=== PATIENT | female | born 2000 | race Two or more races ===

== ENCOUNTER 2021-02-22 14:00 | Inpatient (IN) | payer OTHER ==
[~2021-02-22] VITALS: Ht 152.4 cm; Wt 78.0 kg
[2021-03-01] MEDS ORDERED: PRENATAL CAPLE1 EAC1 PO (09:11)
[2021-03-01] MEDS ORDERED: IRON325 MG PO (09:12)
== END 2021-03-03 15:53 | disposition home or self-care (01) | DRG 807 ==
LOC: LDR 03-01 08:31 → SURG-SUITE 03-01 08:31 → SURH 03-01 14:00 → SURG-SUITE 03-01 19:09
PROVIDERS: ADMIT Student in an Organized Health Care Education/Training Program; ATTEND Student in an Organized Health Care Education/Training Program
PROC: 10E0XZZ Delivery of Products of Conception, External Approach (ICD-10-PCS; principal; 2021-03-01)
PROC: 0W8NXZZ Division of Female Perineum, External Approach (ICD-10-PCS; 2021-03-01)
PROC: 10907ZC Drainage of Amniotic Fluid, Therapeutic from Products of Conception, Via Natural or Artificial Opening (ICD-10-PCS; 2021-03-01)
PROC: 3E033VJ Introduction of Other Hormone into Peripheral Vein, Percutaneous Approach (ICD-10-PCS; 2021-03-01)
PROC: 4A1HXFZ Monitoring of Products of Conception, Cardiac Rhythm, External Approach (ICD-10-PCS; 2021-03-01)
DX: O48.0 Post-term pregnancy (principal); Z37.0 Single live birth; O99.824 Streptococcus B carrier state complicating childbirth; O90.81 Anemia of the puerperium; D64.9 Anemia, unspecified; Z3A.40 40 weeks gestation of pregnancy